=== PATIENT | male | born 1995 | race Caucasian/White ===

== ENCOUNTER 2018-06-24 05:21 | Observation (INO) ==
[2018-06-24] MEDS ORDERED: Acetaminophen 325 MG Tablet PO PRN (12:43)
[2018-06-24] MEDS ORDERED: Sod Chloride 0.9% Inj 1,000 ML IV.CONT SCH (12:45)
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
[2018-06-24 14:08] LABS: Bilirubin,Urine Negative (Negative); Clarity,Urine Clear (Clear); Glucose,Urine (UA) Negative (Negative); Leukocyte Esterase,Urine Negative (Negative); Nitrite,Urine Negative (Negative); Urobilinogen,Urine 0.2 mg/dL (Less than 2)
[2018-06-24 14:11] LABS: Color,Urine Straw (Yellw/Straw)
[2018-06-24 14:17] LABS: Amphetamine Screen,Urine Neg (Neg); Barbiturate Screen,Urine Neg (Neg); Cannabinoid Screen,Urine Pos (Neg); Cocaine Screen,Urine Neg (Neg); Squamous Epithelial Cell,Urine 0-5 /hpf (0-5)
[2018-06-24 14:37] LABS: Opiate Screen,Urine Neg (Neg)
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
[2018-06-24 18:08] VITALS: BP 119/59; PULSE 75; RESP 16; TEMP 97.5; O2SAT 100
--- NOTE | 2018-06-24 18:49 | MG ---
cc: Roshan Martino MD EEG NUMBER: [id number] INDICATION: Seizure, right-sided body shaking. FINDINGS: A 10 Hz, 60 microvolt symmetric posterior and diffuse rhythm is seen. Recording overall is quite normal appearing. No epileptiform or seizure activity is noted. Some movement artifact is seen. Hyperventilation was performed without significant change in the background. Photic stimulation was performed. No epileptiform or seizure activity is noted. There are no hemisphere asymmetries. The patient reaches stage II sleep, which is normal and synchronous. IMPRESSION: A normal awake and stage II sleep electroencephalogram. No evidence for a focal or diffuse abnormality. MD ARTUR Vences/isabel/brenda , 06:07 PM , 06:10 PM
[2018-06-24] MEDS ORDERED: levETIRAcetam 500 MG Tablet PO SCH (21:00)
--- NOTE | 2018-06-25 11:23 | P.AMA ---
AMA Note Recommended Treatment Course: Neuro checks, neurology clearance AMA Statement: Patient Jt Bruner has decided to leave the hospital against medical advice. This patient has the capacity to refuse care and understands the risks of leaving, including permanent disability and/or , and has had an opportunity to ask questions about his/her condition. The patient has been informed that he/she may return for care at any time, and follow up has been arranged/advised. Discharge Disposition: Against Medical Advice Patient Condition on Discharge: Stable
== END 2018-06-24 19:14 | disposition left against medical advice (07) ==
LOC: NEDDLT 05:21 → PH3 05:21
PROVIDERS: ADMIT Hospitalist; ATTEND Hospitalist